=== PATIENT | female | born 1945 | race Caucasian/White ===

== ENCOUNTER 2019-08-29 12:12 | Outpatient (CLI) | payer MEDICARE, SELFPAY ==
--- NOTE | ~2019-08-29 | MM_ITS ---
EXAMINATION: MM screening [facility] BI w snow HISTORY: Screening mammogram TECHNIQUE: Craniocaudal and mediolateral oblique 3-D tomosynthesis images were obtained and synthetic 2-D images were generated. CAD analysis was submitted and interpreted. COMPARISON: Comparison to multiple prior studies sequentially, with oldest reviewed study dated 05/07. BREAST PARENCHYMAL COMPOSITION: There are scattered areas of fibroglandular density. FINDINGS: There is no evidence of suspicious mass, calcification, or architectural distortion to sugg est malignancy in either breast. There has been no suspicious interval change. IMPRESSION: 1. No mammographic evidence of malignancy. 2. Recommend routine screening mammography in one year. BI-RADS Category 1: Negative Reviewed, dictated and finalized at location A. LE SCHOOL ASSISTANT PRINCIPAL
== END 2019-08-29 12:13 | disposition home or self-care (01) ==
LOC: CHSIMG 12:15
PROVIDERS: PCP Internal Medicine; Visit Provider Obstetrics & Gynecology
DX: Z12.31 Encounter for screening mammogram for malignant neoplasm of breast (principal)
CPT/HCPCS: 77063; 77067

== ENCOUNTER 2020-01-06 07:10 | Outpatient (CLI) | payer MEDICARE, SELFPAY ==
--- NOTE | ~2020-01-06 | XR_ITS ---
EXAMINATION: XR hand RT min 3V, XR wrist RT min 3V DATE: 01/06/2020 07:45 INDICATION: Right hand and wrist pain and swelling TECHNIQUE: 1. Posteroanterior, ulnar deviation, oblique, and lateral views of the right wrist were obtained. 2. Dorsal palmar, oblique and lateral views of the right hand were obtained. COMPARISON: None. FINDINGS: Alignment of the hand and wrist is normal. No fracture identified. Polyarticular osteoarthritis, sev ere at the first carpal metacarpal and at the second-fifth distal interphalangeal joints. There are c entral erosions with gullwing configuration at the base of the second, third and fifth distal phalang es consistent with erosive osteoarthritis. Moderate osteoarthritis at the first interphalangeal joint and mild osteoarthritis at the wrist, triscaphe and remaining interphalangeal and metacarpophalangea l joints. Diffuse osteopenia. Soft tissues are unremarkable. IMPRESSION: 1. Polyarticular osteoarthritis, severe at the first carpometacarpal and multiple distal interphalang eal joints. Reviewed, dictated and finalized at location A. IMPRESSION: 1. Polyarticular osteoarthritis, severe at the first carpometacarpal and multip le distal interphalangeal joints.
[2020-01-06 07:27] LABS: Basophils Absolute Auto 0.04 K/mm3 (0.00-0.10); Basophils Percent Auto 0.9 % (0.0-1.0); Eosinophils Absolute Auto 0.36 K/mm3 (0.02-0.50); Eosinophils Percent Auto 8.4 % (1.0-6.0); Hematocrit 40.9 % (35.0-42.0); Hemoglobin 13.5 g/dL (11.7-13.8); Immature Granulocyte Absolute 0.01 K/mm3 (0.00-0.00); Immature Granulocyte Percent A 0.2 % (0.0-0.0); Lymphocytes Absolute Auto 1.67 K/mm3 (1.10-4.50); Mean Corpuscular Hemoglobin 32.1 pg (27.0-31.0); Mean Corpuscular Volume 97.1 fL (78.0-102.0); Mean Platelet Volume 9.1 fl (9.2-11.8); Monocytes Absolute Auto 0.43 K/mm3 (0.10-0.90); Neutrophils Absolute Auto 1.8 K/mm3 (1.7-7.2); Neutrophils Percent Auto 41.5 % (50.0-70.0); Platelet Count Result 198 K/mm3 (150-420); Red Blood Count 4.21 M/mm3 (4.20-5.40); Red Cell Distribution Width 13.1 % (11.6-14.4); White Blood Count 4.3 K/mm3 (4.8-10.8)
[2020-01-06 07:38] LABS: Hemoglobin A1C 5.7 % (<5.7)
[2020-01-06 08:34] LABS: Alanine Aminotransferase 22 U/L (14-59); Albumin Level 3.5 g/dL (3.4-5.0); Alkaline Phosphatase 92 U/L (46-116); Anion Gap 11.1 mmol/L (7-16); Aspartate Amino Transferase 20 U/L (15-37); Bilirubin,Total 1.1 mg/dL (0.00-1.00); Blood Urea Nitrogen 17 mg/dL (7-18); Carbon Dioxide 30 mmol/L (21-32); Chloride 108 mmol/L (98-108); Estimated Glomerular Filt Rate > 60; Glucose 93 mg/dL (70-99); Osmolality Calculated 301 mOsm/kg (285-295); Potassium 4.1 mmol/L (3.5-5.1); Sodium 145 mmol/L (136-145); Total Protein 6.3 g/dL (6.4-8.2); Uric Acid 2.7 mg/dL (2.6-6.0)
[2020-01-06 08:36] LABS: CRP < 0.2 mg/dL (0.0-0.9)
[2020-01-11 11:19] LABS: Anti Cyclic Citrullinated Pept <16 Units (<20)
== END 2020-01-06 07:11 | disposition home or self-care (01) ==
LOC: CHSLAB 07:15
PROVIDERS: PCP Internal Medicine; Visit Provider Internal Medicine
DX: M79.641 Pain in right hand (principal); I10 Essential (primary) hypertension; R73.03 Prediabetes
CPT/HCPCS: 36415; 73110; 73130; 80053; 83036; 84550; 85025; 86140; 86200

== ENCOUNTER 2020-06-30 09:12 | Outpatient (CLI) | payer MEDICARE, SELFPAY ==
[2020-06-30 10:23] LABS: SARS-CoV-2 Ag Negative (Negative)
== END 2020-06-30 09:13 | disposition home or self-care (01) ==
LOC: CHSLAB 09:16
PROVIDERS: PCP Internal Medicine; Visit Provider Internal Medicine
DX: Z20.828 Contact with and (suspected) exposure to other viral communicable diseases (principal)
CPT/HCPCS: 87426

== ENCOUNTER 2020-11-27 15:37 | Outpatient (RCR) | payer MEDICARE, SELFPAY ==
--- NOTE | 2020-11-27 17:00 | PTOPEVAL ---
Thank you for referring Tasha Wylie to [facility].? The patient is scheduled to be seen for therapy? __2__x/week for 10 visits Please review, sign, date and return this plan of care NORMA. I agree with and certify that the following plan of care is medically necessary. Referring Physician Date Admitting Provider: Attending Provider: Anil Levy MD Referring Provider: *PT Outpatient Evaluation Start: 11/27/20 15:56 Freq: Status: Active Protocol: Document 11/27/20 15:56 ACR (Rec: 11/27/20 16:59 ACR [id number]) Therapy Assessment Status Assessment Status Assessment Status Evaluation Evaluation Information Problem Diagnosis bilateral knee pain Onset 11/22/20 Subjective Information Patinet states that she has Query Text:As Reported By Patient/ knee, back, and hip pain. She Family went to the doctor in October and the pain was bad, but it has decreased overtime. Patient states she got a shot in her R hip and then followed up after a month. She then started to have a lot of knee pain during this time, which she got an x-ray of her knees along with shots in both knees . Patient states that her L knee hurts worse than her R. The MD sent an order over for strengthening of the knees and to improve gait. Patient states that she has the most difficulty with stairs, walking/standing for a prolonged time, and occasionally getting up from the chair. Patient states she has stairs onto her back porch where she has to hold onto something. She states she has more difficulty going up the steps then going down. She is also afraid of falling. Patient states that she is unable to perform her hobbies (golfing, bowling, and gardening) because of all of her aches and pains. Prior Level of Function Activity Level (Last 3 Months) Occupation retired Hand Dominance Right Activi
== END 2020-12-27 10:55 | disposition home or self-care (01) ==
LOC: CHSPT 15:37
PROVIDERS: PCP Internal Medicine; Visit Provider Orthopaedic Surgery
DX: M25.561 Pain in right knee (principal); M25.562 Pain in left knee
CPT/HCPCS: 97110; 97161; 97530

== ENCOUNTER 2021-04-22 11:37 | Outpatient (CLI) | payer MEDICARE, SELFPAY ==
[2021-04-22 14:22] LABS: SARS-CoV-2 RNA PCR Negative (Negative)
== END 2021-04-22 11:38 | disposition home or self-care (01) ==
LOC: CHSLAB 11:39
PROVIDERS: PCP Internal Medicine; Visit Provider Internal Medicine
DX: Z20.822 Contact with and (suspected) exposure to COVID-19 (principal)
CPT/HCPCS: C9803; U0003; U0005

== ENCOUNTER 2021-06-03 14:08 | Outpatient (CLI) | payer MEDICARE, SELFPAY ==
--- NOTE | ~2021-06-03 | MM_ITS ---
EXAMINATION: MM screening [facility] BI w snow HISTORY: Screening mammogram TECHNIQUE: Craniocaudal and mediolateral oblique 3-D tomosynthesis images were obtained and synthetic 2-D images were generated. CAD analysis was submitted and interpreted. COMPARISON: 08/29/2019, 08/26/2018, 07/07/2017 bilateral screening mammogram examinations BREAST PARENCHYMAL COMPOSITION: The breasts are almost entirely fatty. FINDINGS: There is no evidence of suspicious mass, calcification, or architectural distortion to sugg est malignancy in either breast. There has been no suspicious interval change. IMPRESSION: 1. No mammographic evidence of malignancy. 2. Recommend routine screening mammography in one year. BI-RADS Category 1: Negative Reviewed, dictated and finalized at location A. LEMENT PROCESSOR
== END 2021-06-03 14:09 | disposition home or self-care (01) ==
LOC: CHSIMG 14:10
PROVIDERS: PCP Internal Medicine; Visit Provider Obstetrics & Gynecology
DX: Z12.31 Encounter for screening mammogram for malignant neoplasm of breast (principal)
CPT/HCPCS: 77063; 77067

== ENCOUNTER 2021-12-18 10:05 | Outpatient (CLI) | payer MEDICARE, SELFPAY ==
--- NOTE | ~2021-12-18 | XR_ITS ---
EXAMINATION: XR knee LT min 4V DATE: 12/18/2021 10:26 INDICATION: Left knee pain and swelling. TECHNIQUE: 5 views of left knee were obtained. COMPARISON: Left knee radiographs 02/07/2016 FINDINGS: Bone alignment is normal. No fracture. There is mild tricompartmental osteoarthritis. No kn ee joint effusion. IMPRESSION: 1. Mild left knee osteoarthritis. Reviewed, dictated and finalized at location B.
== END 2021-12-18 10:06 | disposition home or self-care (01) ==
PROVIDERS: PCP Internal Medicine; Visit Provider Orthopaedic Surgery
DX: M17.12 Unilateral primary osteoarthritis, left knee (principal)
CPT/HCPCS: 73564

== ENCOUNTER 2022-03-12 15:11 | Outpatient (CLI) | payer MEDICARE, SELFPAY ==
[2022-03-12 15:46] LABS: Add Urine Microscopic? NO; Appearance Urine Clear (Clear); Bilirubin Urine Negative (Negative); Blood Urine Negative (Negative); Color Urine Light Yellow (Yellow); Glucose Urine UA Negative (Negative); Ketones Urine Negative (Negative); Leukocyte Esterase Ur Negative LEU/UL (Negative); Nitrate Urine Negative (Negative); Protein Urine Negative (Negative); Specific Grav Ur 1.015 (1.010-1.020); Urobilinogen Urine 0.2 mg/dL (0.2-1.0); pH Urine 7.5 (5.0-8.0)
[2022-03-15 14:07] LABS: Hepatitis C Signal to Cutoff 0.01 ratio (<1.00); Hepatitis C Virus Antibody Nonreactive (Nonreactive)
== END 2022-03-12 15:12 | disposition home or self-care (01) ==
LOC: CHSLAB 15:13
PROVIDERS: PCP Internal Medicine; Visit Provider Internal Medicine
DX: N39.0 Urinary tract infection, site not specified (principal); Z13.89 Encounter for screening for other disorder
CPT/HCPCS: 36415; 81003

== ENCOUNTER 2022-06-06 11:50 | Outpatient (CLI) | payer MEDICARE, SELFPAY ==
--- NOTE | ~2022-06-06 | XR_ITS ---
XR hip LT min 2V DATE: 06/06/2022 12:19 INDICATION: Chronic left hip pain for years. TECHNIQUE: AP and lateral views COMPARISON: 10/24/2020 pelvis and bilateral hips FINDINGS: Severe degenerative disc disease at L4-5 and L5-S1. Normal alignment at the pubic symphysis and left sacroiliac joint. There is mild degenerative spurring of the left femoral head consistent with mild left hip osteoarthr itis. No fracture or dislocation, avascular necrosis or bone destruction of the left hip is detected. IMPRESSION: Severe degenerative disc disease at L4-5 and L5-S1 Mild left hip osteoarthritis Reviewed, dictated and finalized at location B. MENT MANAGEMENT CONSULTANT
== END 2022-06-06 11:51 | disposition home or self-care (01) ==
LOC: CHSLAB 11:52
PROVIDERS: PCP Internal Medicine; Visit Provider Nurse Practitioner Family
DX: M25.552 Pain in left hip (principal)
CPT/HCPCS: 73502

== ENCOUNTER 2022-06-11 09:05 | Outpatient (CLI) | payer MEDICARE, SELFPAY ==
--- NOTE | ~2022-06-11 | MM_ITS ---
EXAMINATION: MM screening [facility] BI w snow HISTORY: Screening mammogram TECHNIQUE: Craniocaudal and mediolateral oblique 3-D tomosynthesis images were obtained and synthetic 2-D images were generated. CAD analysis was submitted and interpreted. COMPARISON: 06/03/2021, 08/29/2019, 08/26/2018 BREAST PARENCHYMAL COMPOSITION: There are scattered areas of fibroglandular density. FINDINGS: No suspicious mass, calcification, or architectural distortion are identified in either chandu ast to suggest malignancy. There has been no suspicious interval change. IMPRESSION: 1. No mammographic evidence of malignancy. 2. Recommend routine screening mammography in one year. BI-RADS Category 1: Negative Reviewed, dictated and finalized at location A. ETARY RECEPTIONIST
== END 2022-06-11 09:06 | disposition home or self-care (01) ==
LOC: CHSIMG 09:07
PROVIDERS: PCP Internal Medicine; Visit Provider Obstetrics & Gynecology
DX: Z12.31 Encounter for screening mammogram for malignant neoplasm of breast (principal)
CPT/HCPCS: 77063; 77067

== ENCOUNTER 2022-07-15 11:45 | Outpatient (CLI) | payer MEDICARE, SELFPAY ==
--- NOTE | ~2022-07-15 | XR_ITS ---
EXAMINATION: XR knee LT 2V DATE: 07/15/2022 12:09 INDICATION: Left knee pain TECHNIQUE: Two views of the left knee were obtained. COMPARISON: 12/18/2021 FINDINGS: Alignment is normal. No fracture or osteochondral lesion. There is mild tricompartmental os teoarthritis characterized by tiny marginal osteophytes. No joint effusion/synovitis. Soft tissues a re unremarkable. IMPRESSION: 1. Mild osteoarthritis without acute osseous abnormality. Reviewed, dictated and finalized at location L. THESIA RESIDENT
== END 2022-07-15 11:46 | disposition home or self-care (01) ==
LOC: CHSIMG 11:49
PROVIDERS: PCP Internal Medicine; Visit Provider Nurse Practitioner Family
DX: M25.562 Pain in left knee (principal); M17.12 Unilateral primary osteoarthritis, left knee
CPT/HCPCS: 73560

== ENCOUNTER 2022-09-13 14:36 | Emergency (ER) | payer MEDICARE, SELFPAY ==
[2022-09-13 14:36] VITALS: BP 122/70; PULSE 71; RESP 18; TEMP 36; O2SAT 98
--- NOTE | 2022-09-13 14:44 | ED.FEVER ---
HPI - Fever General Chief Complaint: Unspecified Stated Complaint: covid positive; body aches Time Seen by Provider: 09/13/22 14:44 Source: patient Mode of arrival: ambulatory Limitations: no limitations History of Present Illness HPI Narrative: patient having chills and weakness with currently no shortness of breath patient is currently afebrile is not short of breath does have some nasal congestion and nonproductive cough and tested positive for COVID. MD elicited complaint: weakness Related Data Home Medications Medication Instructions Recorded Confirmed atorvastatin 40 mg tablet 40 mg PO DAILY 07/14/19 03/13/21 calcium carbonate 600 mg-vitamin cap PO 07/14/19 03/13/21 D3 5 mcg (200 unit) capsule (Calcium 600 + D(3)) diltiazem HCl 180 mg 180 mg PO DAILY 07/14/19 03/13/21 capsule,extended release 24 hr albuterol sulfate 90 mcg/actuation 1 puff inhalation Q4H PRN 02/01/20 03/13/21 aerosol inhaler (Ventolin HFA) ramipril 10 mg capsule 10 mg PO DAILY 02/01/20 03/13/21 Allergies Allergy/AdvReac Type Severity Reaction Status Date / Time No Known Allergies Allergy Verified 02/06/22 14:02 Review of Systems Review of Systems: All systems reviewed & are unremarkable except as noted in HPI and below PMFSH Past Medical History Medical History Asthma Elevated lipids H/O vaginal delivery Hypertension Vulvar inflammation Surgical History Surgical History History of dilation and curettage History of elbow surgery History of myomectomy History of tubal ligation Family History Family History Father Family history of chronic obstructive pulmonary disease Mother Family history of diabetes mellitus in first degree relative Family history of heart disease in male family member before age 55 Diabetes mellitus Other Family history of malignant neoplasm Family history of malignant neoplasm of breast Social History Social History Smoking status: Never smoker Smoking end date: 07/06/75 Alcohol intake: never Exam Const: General: healthy appearing Nutritional Appearance: well nourished Orientation/consciousness: patient oriented x3 Limitations: no limitations HENMT: Head: normal to inspection Face/Nose/Sinus: Normal external nose present Face and sinus: normal facial exam Mouth: Yes Normal oral and palatal mucosa present Eyes: Conjunctivae: conjunctivae normal EOM: EOMs intact bilaterally Neck: Neck: normal visual inspection Chest: Chest palpation & inspection: normal inspection of the chest Resp: Effort & Inspection: normal respiratory effort Cardio: Rate: regular rate Rhythm: regular rhythm GI: GI Palp: Yes Soft to palpation : General: Yes bladder normal to palpation Skin: General skin exam: normal color Rashes: no rashes Neuro: General: patient oriented x3 and moves all extremities Psych: Appearance: grossly normal Mental Status: mental status grossly normal Course REGULATORY TECHNICIAN/PA Physician Supervision Patient here requesting Paxlovid be sent to her pharmacy, otherwise there is no shortness of breath currently afebrile and tested positive for COVID at home. Critical Care Time Critical Care Time Critical Care Time: No Discharge Plan Discharge Clinical Impression: COVID-19 Patient Disposition: Home, Self-Care Condition: Stable Instructions: Antibiotic Form, COVID-19 (Coronavirus Disease 2019) (ED) Additional Instructions: advised take medicine as prescribed, Tylenol or Motrin self isolation and follow up primary symptoms persist or worsen. Advised patient to hold atorvastatin until finished with a course of paxlovid. Prescriptions: New Paxlovid (EUA) 300 mg (150 mg x 2)-100 mg tablets,dose pack See Rx Instructions .ROUTE .COM
== END 2022-09-13 15:01 | disposition home or self-care (01) ==
LOC: CHSED 14:53
PROVIDERS: Emergency Provider Emergency Medicine; PCP Internal Medicine
DX: U07.1 COVID-19 (principal); J45.909 Unspecified asthma, uncomplicated
CPT/HCPCS: 99283

== ENCOUNTER 2022-11-04 09:02 | Outpatient (CLI) | payer MEDICARE, SELFPAY ==
--- NOTE | ~2022-11-04 | US_ITS ---
Pelvic ultrasound. Clinical History: Postmenopausal bleeding Technique: Realtime transabdominal and transvaginal scanning of the pelvis was performed. Color flow Doppler and Doppler spectral analysis were performed. Findings: The uterus is anteverted. The endometrial stripe has a thickness of 7 mm. No focal mass is identified. Neither ovary seen. No adnexal mass seen.. There is no evidence of free fluid in the cul de sac. Impression: Mild thickening of the endometrial stripe. Consider endometrial hyperplasia versus possibility of end ometrial neoplasm. Consider additional workup including endometrial biopsy as indicated. Reviewed, dictated and finalized at location M. Impression: Mild thickening of the endometrial stripe. Consider endometrial hyperplasia linda stephen possibility of endometrial neoplasm. Consider additional workup including e ndometrial biopsy as indicated.
== END 2022-11-04 09:03 | disposition home or self-care (01) ==
PROVIDERS: PCP Internal Medicine; Visit Provider Registered Nurse
DX: N95.0 Postmenopausal bleeding (principal)
CPT/HCPCS: 76830; 76856

== ENCOUNTER 2023-06-26 10:47 | Outpatient (CLI) | payer MEDICARE, SELFPAY ==
--- NOTE | ~2023-06-26 | MM_ITS ---
EXAMINATION: MM screening [facility] BI w snow HISTORY: Screening TECHNIQUE: Craniocaudal and mediolateral oblique 3-D tomosynthesis images were obtained and synthetic 2-D images were generated. CAD analysis was submitted and interpreted. COMPARISON: Comparison to multiple prior studies sequentially, with oldest reviewed study dated 06/06. BREAST PARENCHYMAL COMPOSITION: Breast composed of scattered areas of fibroglandular density FINDINGS: There is no evidence of suspicious mass, calcification, or architectural distortion to sugg est malignancy in either breast. There has been no suspicious interval change. IMPRESSION: 1. No mammographic evidence of malignancy. 2. Recommend routine screening mammography in one year. BI-RADS Category 1: Negative Reviewed, dictated and finalized at location A. OFFBEARER
== END 2023-06-26 10:48 | disposition home or self-care (01) ==
LOC: CHSIMG 10:50
PROVIDERS: PCP Internal Medicine; Visit Provider Obstetrics & Gynecology
DX: Z12.31 Encounter for screening mammogram for malignant neoplasm of breast (principal)
CPT/HCPCS: 77063; 77067

== ENCOUNTER 2023-07-02 11:32 | Outpatient (CLI) | payer MEDICARE, SELFPAY ==
--- NOTE | ~2023-07-02 | XR_ITS ---
XR knee LT min 4V 07/02/2023 11:49 Indication: Left knee pain Procedure: 4 views left knee Comparison: Comparison to multiple prior studies sequentially, with oldest reviewed study dated 10/2015. Findings: There is mild osteoarthritis of the left knee. No fracture, subluxation or dislocation. No significant joint effusion. No foreign bodies. Impression: 1: Mild osteoarthritis of the left knee. Reviewed, dictated and finalized at location L. CTOR BUILDING Impression: 1: Mild osteoarthritis of the left knee.
== END 2023-07-02 11:33 | disposition home or self-care (01) ==
PROVIDERS: PCP Internal Medicine; Visit Provider Orthopaedic Surgery
DX: M17.12 Unilateral primary osteoarthritis, left knee (principal)
CPT/HCPCS: 73564

== ENCOUNTER 2023-12-11 12:08 | Outpatient (CLI) | payer MEDICARE, SELFPAY ==
--- NOTE | ~2023-12-11 | US_ITS ---
US pelvic complete Ordering provider: Alejandra Rader History: . pelvic pain in female . Comparison: November 04, 2022 Technique: Transabdominal ultrasound of the pelvis (Doppler ultrasound interrogation techniques used as needed for this exam.) FINDINGS: CERVIX: Normal. UTERUS: Measures 7.4x 5.7x 3.4 cm in length which is within normal limits and is anteverted. No myom etrial masses. ENDOMETRIUM: Normal in thickness measuring 6 mm. (Note: the premenopausal endometrium may measure up to 16 mm when in the secretory phase.) No endometrial masses, cysts or fluid. CUL DE SAC: No free fluid. RIGHT OVARY: Not seen. LEFT OVARY: Not seen. ADNEXA: Normal. No mass. IMPRESSION: Unremarkable pelvic ultrasound. Ovaries are not demonstrated. Reviewed, dictated and finalized at location A.
== END 2023-12-11 12:09 | disposition home or self-care (01) ==
LOC: CHSIMG 12:10
PROVIDERS: PCP Internal Medicine
DX: R10.2 Pelvic and perineal pain (principal)
CPT/HCPCS: 76856

== ENCOUNTER 2025-01-25 09:34 | Outpatient (CLI) | payer MEDICARE, SELFPAY ==
--- NOTE | ~2025-01-25 | MM_ITS ---
EXAMINATION: MM screening armando BI w snow HISTORY: Screening TECHNIQUE: Craniocaudal and mediolateral oblique 3-D tomosynthesis images were obtained and synthetic 2-D images were generated. CAD analysis was submitted and interpreted. COMPARISON: Comparison to multiple prior studies sequentially, with oldest reviewed study dated 2017. BREAST PARENCHYMAL COMPOSITION: The breasts are almost entirely fatty. FINDINGS: There is no evidence of suspicious mass, calcification, or architectural distortion to sug gest malignancy in either breast. IMPRESSION: 1. No mammographic evidence of malignancy. 2. Recommend routine screening mammography in one year. BI-RADS Category 1: Negative Reviewed, dictated and finalized at location B.
--- OUTSIDE RECORDS SUMMARY | 2025-01-25 09:45 | XMS_ITS | Patient Health Record ---
Author Organization [facility] Address [address] [place], [place] [id number] Care Team Providers Care Manufacturing Industrial Engineer Name Role Phone TIRSO AUSTIN Unavailable [phone] Scott Escobar Unavailable Unavailable Reason For Referral No Information Plan Of Treatment No Information Insurance Providers Payer Name Payer Address Payer Phone Subscriber Number Group Number Insured Name Patient Relationship to Insured Coverage Start Date Coverage End Date Medicare Part B [place] [address] [facility] [address] [id number] EVELIO MERINO Self - patient is the insured [facility] [address] [address] [place] [address] [id number] EVELIO MERINO Self - patient is the insured [facility] [address] [place] [phone] [id number] EVELIO MERINO Self - patient is the insured
--- OUTSIDE RECORDS SUMMARY | 2025-01-25 09:45 | XMS_ITS | Clinical Summary ---
Author Organization [facility] Address [address] [place] [address] Care Team Providers Care Photographic Lithographer Name Role Phone Scott Escobar MD Primary Care Provider [phone] Source Comments [facility],non-owned Affiliates and Associated Physician Practices is amultiple site organization consisting of ambulatory clinics and hospital sitesin [place], [place], [place] and [place]. This disclosure is being madepursuant to the Care Everywhere program and may not contain all information available regarding this patient. Last updated 18.[facility] Allergies No known active allergies Medications * Be aware that medications may not be up to date on this document. Alwaysverify current medications with the patient. ramipril (Altace) 10 MG capsule Take 1 (one) capsule by mouth once daily 3 Active atorvastatin (Lipitor) 40 MG tablet Take 1 (one) tablet by mouth once daily 3 Active aspirin EC (Ecotrin) 81 MG tablet Take 1 (one) tablet by mouth once daily Active fexofenadine (Jannie Allergy) 180 MG tablet Take 1 (one) tablet by mouth once daily Active Calcium Carb-Cholecalc iferol (Calcium + Vitamin D3) 500-10 MG-MCG Take 1 tablet by mouth once daily Active dilTIAZem coated beads 24hr (Cardizem CD) 180 MG capsule Take 1 (one) capsule by mouth once daily 4 Active fluticasone propionate (Flonase) 50 MCG/ACT nasal spray [place] 2 (two) sprays into each nostril once daily as needed Active ibuprofen (Advil) 200 MG capsule Take 1 (one) capsule by mouth 4 times daily as needed for Pain Active naproxen sodium (Aleve) 220 MG tablet Take 1 (one) tablet by mouth 2 times daily as needed for Pain Active acetaminophen (Tylenol) 500 MG tablet Take 1 (one) tablet by mouth every 4 hours as needed for Fever or Pain Maximum allowable Acetaminophen amount = 4 Grams (4000 mg) / 24 hours. Active Albuterol-[place] sonide (Airsupra) 90-80 MCG/ACT AERO Inhale Active methocarbamol (Robaxin) 500 MG tablet TAKE 2 TABLETS BY MOUTH 2 TIMES A DAY NEEDED FOR 30 DAYS 4 Active estradiol (Estrace) 0.1 MG/GM vaginal cream INSERT 1G INTO THE VAGINA NIGHTLY FOR 1 WEEK. THEN INSERT 1G INTO THE VAGINA TWO TIMES A WEEK THEREAFTER. 42.5 g 3 5 Active DULoxetine (Cymbalta) 60 MG capsule TAKE 1 CAPSULE (60 MG) BY ORAL ROUTE EVERY EVENING 5 Active Magnesium Cl-Calcium Carbonate (SLOW-MAG PO) Active triamcinolone acetonide (Kenalog) 0.1 % ointmentIndica tions:Lichen sclerosus et atrophicus of the vulva Apply to external vulvar tissues twice daily. 30 g 80 g 3 5 Active Active Problems Problem Noted Date Diagnosed Date Mixed hyperlipidemia 06/14/2021 12/03/2022 Benign hypertension 08/20/2015 12/03/2022 Overview (12/03/2022): HTN (hypertension), benign Coronary artery disease invo lving [place] coronary artery of [place] heart without angina pectoris 08/20/2015 12/03/2022 Overview (12/03/2022): Coronary artery disease involving [place] coronary artery of [place] heart without angina pectoris SVITLANA on CPAP 08/20/2015 12/03/2022 Overview (12/03/2022): SVITLANA on CPAP Paroxysmal supraventricular tachycardia 01/19/20 14 12/03/2022 Overview (12/03/2022): PSVT (paroxysmal supraventricular tachycardia) Morbid (severe) obesity due to excess calories 1 07/11/2011 Lichen sclerosus et atrophicus of the vulva 11/0 12/201112/03/2022 Encounters Date Type Department Care Team Description 12/13/2024 2:20 PM CDT Office Visit [facility] - DRAPERY AND UPHOLSTERY ESTIMATOR [address] [place] [address] Georgia Morris MD Lichen sclerosus et atrophicus of the vulva (Primary Dx) 12/13/2024 Travel from Last 3 Months Family History Medical History Relation Name Comments Cancer - Breast Maternal Aunt CAD (Coronary Artery Disease) Mother Diabetes - Type 2 Mother Cancer - Ovarian Sister Diabetes - Type 2 Son 1 Diabetes - Type 2 Son 2 Relation Name Status Comments Maternal Aunt Mother Sister Son 1 Alive Son 2 Alive Social History Tobacco Use Types Packs/Day Years Used Date Smoking Tobacco: Former Cigarettes Q uit: 1976 Passive Smoke Exposure: Past Smokeless Tobacco: Never Tobacco Cessation:Counseling Given: Not Answered Alcohol Use Standard Drinks/Week Comments Not Currently 0 (1 standard drink = 0.6 oz pur e alcohol) PHQ-2 Answer Date Recorded Patient Health Questionnaire-2 Score 0 12/13/2024 Comments No Sex and Gender Information Value Date Recorded Sex Assigned at Not on file Legal Sex Female 5:55 PM LIBRARIAN SPECIALIST Gender Identity Not on file Sexual Orientation Not on file Last Filed Vital Signs Vital Sign Reading Time Taken Comments Blood Pressure 130/74 12/13/2024 1:42 PM CDT Pulse - - Temperature 36.1 C (96.9 F) 12/03/2022 10:57 AM CDT Respiratory Rate - - Oxygen Saturation - - Inhaled Oxygen Concentration - - Weight 116.6 kg (257 lb 1.6 oz) 12/13/2024 1:42 PM CDT Height 168.9 cm (5' 6.5) 12/13/2024 1 :42 PM CDT Body Mass Index 40.88 12/13/2024 1:42 PM CDT Plan of Treatment Upcoming Encounters Date Type Department Care Team (Late st Contact Info) Description 02/09/2025 11:45 AM CDT Office Visit [facility] - DRAPERY AND UPHOLSTERY ESTIMATOR [address] [place] [address] Lala Rosenthal MD [address] [place] [address] 05/16/2025 10:30 AM LIBRARIAN SPECIALIST Office Visit [facility] - DRAPERY AND UPHOLSTERY ESTIMATOR [address] [place] [address] Georgia Morris MD [address] [place] [address] Health Maintenance Due Date Last Done Comments BONE DENSITY TESTING 1945 MEDICARE AWV 12 MONTHS 1945 HEPATITIS C SCREENING 05/27/1965 DTAP/TDAP/TD VACCINES (1 - Tdap) 1966 PNEUMOCOCCAL VACCINE 50+ (1 of 1 - PCV) 1997 ZOSTER VACCINE (1 of 2) 1997 Respiratory Syncytial Virus (RSV) Vaccine Pt: or over 60 yrs (1 - 1-dose 75+ series) 2022 COVID-19 VACCINE ( season) 2024 04/17/2022, 04/09/2021, 08/29/2020, Additional history exists INFLUENZA VACCINE (#1) 2025 , 05/23/2022, 06/03/2021, Additional history exists DEPRESSION SCREENING Completed 12/13/2024, 02/04/20 HEPATITIS B VACCINE Aged Out No longe r eligible based on patient's age to complete this topic HIB VACCINE Aged Out No longer eligi ble based on patient's age to complete this topic HPV VACCINE Aged Out No longer eligi ble based on patient's age to complete this topic MENINGOCOCCAL (Group B) VACCINE SHARED DECISION-MAKING Aged Out No longer eligible based on patient's age to complete this topic MENINGOCOCCAL GROUPS A/C/Y/W VACCINE Aged Out No longer eligible based on patient's age to complete this [place] [address] MEDICARE MEDICARE [place] [address] Care Teams Photographic Lithographer Relationship Specialty Start Date End Date Scott Escobar MD [address] [phone] PCP - General 04/20/12
--- OUTSIDE RECORDS SUMMARY | 2025-01-25 09:45 | XMS_ITS | Clinical Summary ---
Author Organization [facility] [address] Address [address] [place] [address] Care Team Providers Care Home Visitor Home Base Head Start Name Role Phone Scott Escobar MD Primary Care Provider [phone] Allergies No known active allergies Medications calcium carbonate (CALCIUM 500) 1,250 MG (500 mg of elemental calcium) tablet take 1 by Oral route every day 0 12/08/2012 Active aspirin (ADULT LOW DOSE ASPIRIN) 81 mg tablet Take 1 tablet (81 mg total) by mouth daily. 05/13/2017 Active fexofenadine (YOAN) 180 mg tablet Take 1 tablet (180 mg total) by mouth daily Active albuterol-budes onide (Airsupra) 90-80 mcg/actuation HFA aerosol inhaler Inhale Active atorvastatin (LIPITOR) 40 mg tablet Take 1 tablet (40 mg total) by mouth daily 90 tablet 2 05/20/2024 Active dilTIAZem XR (DILT-XR) 180 mg 24 hr capsule TAKE 1 CAPSULE DAILY 90 capsule 2 05/20/2024 Active ramipriL (ALTACE) 10 mg capsule Take 1 capsule (10 mg total) by mouth daily 90 capsule 2 05/20/2024 Active acetaminophen (TYLENOL) 500 mg tablet Take 1 tablet (500 mg total) by mouth every 6 (six) hours as needed for pain Active Active Problems Problem Noted Date Diagnosed Date Morbid (severe) obesity due to excess calories 1 08/27/2021 Chronic fatigue 12/18/2021 Systolic murmur 12/18/2021 Mixed hyperlipidemia 06/14/2021 Myalgia 11/30/2018 Morbid obesity with BMI of 40.0-44.9, adult 110 02/2017 Morbid obesity 08/20/2015 Overview (10/10/2016): Morbid obesity with BMI of 45.0-49.9, adult SVITLANA on CPAP 08/20/2015 Overview (10/10/2016): SVITLANA on CPAP Benign hypertension 08/20/2015 Overview (10/10/2016): HTN (hypertension), benign Coronary artery disease invo lving kasaan coronary artery of kasaan heart without angina pectoris 08/20/2015 Overview (10/10/2016): Coronary artery disease involving kasaan coronary artery of kasaan heart without angina pectoris Paroxysmal supraventricular tachycardia 01/19/20 14 Overview (10/10/2016): PSVT (paroxysmal supraventricular tachycardia) Resolved Problems Problem Noted Date Diagnosed Date Resolved Date Dyslipidemia 08/20/2015 12/18/2021 Overview (10/10/2016): Dyslipidemia Surgical History Surgery Date Site/Laterality Comments CARDIAC CATHETERIZATION ELBOW SURGERY Medical History Medical History Date Comments Hx Other Medical Arrhythmias PSV T Hypertension Hypertension Hx Other Medical Sleep Apnea, CP AP Hx Other Medical Diabetes Type I I Hx Other Medical Obesity, Morbid Cardiovascular disease Coronary Artery Disease Asthma Family History Medical History Relation Name Comments COPD Father COPD; Diabetes Mother Diabetes mellit us; Relation Name Status Comments Father Mother Social History Tobacco Use Types Packs/Day Years Used Date Smoking Tobacco: Former Smokeless Tobacco: Never Alcohol Use Standard Drinks/Week Comments No 0 (1 standard drink = 0.6 oz pur e alcohol) Comments Unknown Sex and Gender Information Value Date Recorded Sex Assigned at Not on file Legal Sex Female 4:03 PM RNP Gender Identity Not on file Sexual Orientation Not on file Obstetrics History Last Filed Vital Signs Vital Sign Reading Time Taken Comments Blood Pressure 134/72 09/15/2024 7:49 AM CDT Pulse 64 09/15/2024 7:49 AM CDT Temperature - - Respiratory Rate - - Oxygen Saturation 97% 09/15/2024 7:49 AM CDT Inhaled Oxygen Concentration - - Weight 117.9 kg (260 lb) 09/15/2024 7:49 AM CDT Height 170.2 cm (5' 7) 09/15/2024 7:49 AM CDT Body Mass Index 40.72 09/15/2024 7:49 AM CDT Plan of Treatment Health Maintenance Due Date Last Done Comments Depression Screening 1945 Fall Risk Assessment 1945 Hepatitis C Screening 1945 Osteoporosis Screening-Bone Density Scan 1945 DTaP/Tdap/Td Vaccine (1 - Tdap) 1958 Hepatitis B Screening 1965 Well Visit 65+ 2012 Zoster Vaccine (2 of 2) 08/17/2019 06/22/2019 Influenza Vaccine (Season Ended) 2025 05/20/2019, 05/10/2018, 05/19/2017, Additional history exists Pneumococcal vaccine 65+ Completed 05/25/2017, 05/07 Insurance MEDICARE [employer]ET[employer] SENIOR SUPPLEMENT MEDICARE COMMERCIAL GENERIC AETNA SENIOR SUPPLEMENT Care Teams Home Visitor Home Base Head Start Relationship Specialty Start Date End Date Scott Escobar MD PCP - General 10/03/16
--- OUTSIDE RECORDS SUMMARY | 2025-01-25 09:45 | XMS_ITS | Clinical Summary ---
Author Organization [facility] Address [facility] [place] [address] Care Team Providers Care Technical Aid Name Role Phone None, Provider MD Primary Care Provider Unavaila ble Encounters Date Type Department Care Team Description 01/04/2025 10:29 AM CDT - 01/04/2025 11:59 PM CDT Hospital Encounter [facility] MRI [address] [place] [address] Jaky Perez NP Discharge Disposition: Home or Self Care (Routine Discharge) 01/04/2025 Travel from Last 3 Months Social History Tobacco Use Types Packs/Day Years Used Date Smoking Tobacco: Never Assessed Comments Unknown Sex and Gender Information Value Date Recorded Sex Assigned at Female 01/04/2025 10:28 AM CDT Legal Sex Female 10:44 PM CDT Gender Identity Not on file Sexual Orientation Not on file Plan of Treatment Health Maintenance Due Date Last Done Comments Hepatitis C 1965 DTaP, Tdap and Td Vaccines (1 - Tdap) 1966 Annual Medicare Wellness Visit 2012 Dexa Scan (General) 2012 Zoster Vaccines (2 of 2) 08/17/2019 06/22/2019 RSV Immunization or 60+ Years (1 - 1-dose 75+ series) 2022 COVID-19 Vaccine ( - season) 2024 05/14/2023, 04/17/2022, 04/09/2021, Additional history exists Pneumococcal Vaccine: 50+ Years Completed 05/25/2017, 06/03/2016 Meningococcal B Vaccine Aged Out No l onger eligible based on patient's age to complete this topic Meningococcal Vaccine Aged Out No ada shukri eligible based on patient's age to complete this topic RSV Immunizations Under 20 Months Aged Out No longer eligible based on patient's age to complete this topic Procedures Procedure Name Priority Date/Time Associated Diagnosis Comments MRI THOR SPINE WO CON Routine 01/04/2025 11:38 AM CDT Lumbar radicular pain from Last 3 Months Results * MRI THOR SPINE WO CON (01/04/2025 11:38 AM CDT) Anatomical Region Laterality Modality Spine Magnetic Resonan ce 01/11/2025 11:4 7 AM CDT Impressions 01/11/2025 11:51 AM CDT IMPRESSION: 1. Minimal effacement of ventral thecal sac at C4/C5 due to a small broad-based midline disc extrusion. No significant thoracic spinal canal stenosis or cord signal abnormality. 2. No acute osseous abnormality or ligamentous injury. Referred By: JAKY PEREZ Interpreted By: Dalton Reyes MD, 01/11/2025 11:47 AM Narrative 01/11/2025 11:51 AM CDT [address] [address] EXAMINATION:MRI of the thoracic spine without contrast 01/04/2025. INDICATION:Back pain TECHNIQUE: Multiplanar multisequence MR imaging of the thoracic spine was performed without intravenous contrast. COMPARISON: Lumbar spine MRI 06/24/2024 FINDINGS:The thoracic spine is in anatomic alignment. There is preservation of vertebral body heights and disc spaces. Bone marrow signal is within normal limits. No acute fracture or dislocation. Type I degenerative changes noted at L2/L3, unchanged. No ligamentous discontinuity or signal abnormality The thoracic spinal cord is unremarkable in course caliber contour and signal. No paraspinal mass or fluid collection. The thoracic aorta is unremarkable in contour. At the T4/T5 level there is a small broad-based midline disc extrusion causing slight effacement of ventral thecal sac. The thecal sac measures 10 mm. At the L1/L2 level there is a disc space narrowing with 2 mm retrolisthesis and disc bulging causing slight effacement of ventral thecal sac, unchanged. Procedure Note Dalton Reyes MD - 01/11/2025 [facility] [address] [place] [address] EXAMINATION:MRI of the thoracic spine without contrast 01/04/2025. INDICATION:Back pain TECHNIQUE: Multiplanar multisequence MR imaging of the thoracic spine wasperformed without intravenous contrast. COMPARISON: Lumbar spine MRI 06/24/2024 FINDINGS:The thoracic spine is in anatomic alignment. There ispreservation of vertebral body heights and disc spaces. Bone marrowsignal is within normal limits. No acute fracture or dislocation. Type Idegenerative changes noted at L2/L3, unchanged. No ligamentousdiscontinuity or signal abnormality The thoracic spinal cord is unremarkable in course caliber contour andsignal. No paraspinal mass or fluid collection. The thoracic aorta isunremarkable in contour. At the T4/T5 level there is a small broad-based midline disc extrusioncausing slight effacement of ventral thecal sac. The thecal sac [id number] mm. At the L1/L2 level there is a disc space narrowing with 2 mmretrolisthesis and disc bulging causing slight effacement of ventralthecal sac, unchanged. IMPRESSION: 1. Minimal effacement of ventral thecal sac at C4/C5 due to a smallbroad-based midline disc extrusion. No significant thoracic spinal canalstenosis or cord signal abnormality. 2. No acute osseous abnormality or ligamentous injury. Referred By: JAKY PEREZ Interpreted By: Dalton Reyes MD, 01/11/2025 11:47 AM Jaky Perez GAGE MAKER MRI Final Result from Last 3 Months Insurance MEDICARE AETNA Care Teams Technical Aid Relationship Specialty Start Date End Date None, Provider, PCP - General 02/13/22
--- OUTSIDE RECORDS SUMMARY | 2025-01-25 09:45 | XMS_ITS | Referral Summary ---
Author Organization [facility] [address] Address [address] [place] [address] Care Team Providers Care Tank Builder Helper Name Role Phone Scott Escobar MD Primary Care Provider [phone] Allergies No known active allergies Medications calcium [...] (hypertension), benign Coronary artery disease invo lving paimiut coronary artery of paimiut heart without angina pectoris 08/20/2015 Overview (10/10/2016): Coronary artery disease involving paimiut coronary artery of paimiut heart without angina pectoris Paroxysmal supraventricular tachycardia 01/19/20 14 Overview (10/10/2016): PSVT (paroxysmal supraventricular tachycardia) Resolved Problems Problem Noted Date Diagnosed Date Resolved Date Dyslipidemia 08/20/2015 12/18/2021 Overview (10/10/2016): Dyslipidemia Social History Tobacco Use Types Packs/Day Years Used Date Smoking Tobacco: Former Smokeless Tobacco: Never Alcohol Use Standard Drinks/Week Comments No 0 (1 standard drink = 0.6 oz pur e alcohol) Comments Unknown Sex and Gender Information Value Date Recorded Sex Assigned at Not on file Legal Sex Female 4:03 PM REGIONAL FACILITIES MANAGER Gender Identity Not on file Sexual Orientation [...] 09/15/2024 7:49 AM CDT Plan of Treatment Not on file Insurance MEDICARE AETNA SENIOR SUPPLEMENT MEDICARE COMMERCIAL GENERIC AETNA SENIOR SUPPLEMENT Care Teams Tank Builder Helper Relationship Specialty Start Date End Date Scott Escobar MD PCP - General 10/03/16
== END 2025-01-25 09:35 | disposition home or self-care (01) ==
PROVIDERS: PCP Internal Medicine; Visit Provider Obstetrics & Gynecology
DX: Z12.31 Encounter for screening mammogram for malignant neoplasm of breast (principal)
CPT/HCPCS: 77063; 77067

== ENCOUNTER 2025-03-30 13:47 | Outpatient (CLI) | payer MEDICARE, SELFPAY ==
[2025-03-30 15:14] LABS: Hematocrit 45.9 % (37.0-47.0); Hemoglobin 14.9 g/dL (12.0-15.0); Mean Corpuscular HGB Conc 32.5 g/dl (32-36); Mean Corpuscular Hemoglobin 31.7 pg (26-34); Mean Corpuscular Volume 97.7 fl (80-100); Platelet Count Result 256 k/mm3 (150-375); Red Blood Count 4.70 M/mm3 (4.2-5.4); White Blood Count 5.9 K/mm3 (4.5-10.0)
[2025-03-30 15:29] LABS: INR 1.0; Partial Thromboplastin Time 28.8 Seconds (22.3-36.8); Prothrombin Time 13.5 Seconds (11.1-14.7)
[2025-03-30 15:42] LABS: Add Urine Microscopic? YES; Appearance Urine Cloudy (Clear); Glucose Urine UA Negative (Negative); Leukocyte Esterase Ur Negative LEU/UL (Negative); Nitrate Urine Negative (Negative); Non Pathogenic Casts 0-2; Specific Grav Ur 1.026 (1.001-1.035)
--- OUTSIDE RECORDS SUMMARY | 2025-03-30 16:38 | XMS_ITS | Clinical Summary ---
Author Organization [facility] Address [facility] [place] [address] Care Team Providers Care Diet Counselor Name Role Phone None, Provider MD Primary Care Provider Unavaila ble Encounters Date Type Department Care Team Description 01/04/2025 10:29 AM CDT - 01/04/2025 11:59 PM CDT Hospital Encounter [facility] MRI [address] [place] [address] Jaky Perez NP Discharge Disposition: Home or [...] series) 2022 COVID-19 Vaccine ( - season) 2025 05/14/2023, 04/17/2022, 04/09/2021, Additional history exists Pneumococcal [...] 11:47 AM Narrative 01/11/2025 11:51 AM CDT [address] [address] EXAMINATION:MRI of the thoracic spine without contrast [...] Procedure Note Dalton Reyes MD - 01/11/2025 [facility] [address] [place] [address] EXAMINATION:MRI of the thoracic spine without contrast [...] of ventral thecal sac. The thecal sac [id number] mm. At the L1/L2 level there is [...] Reyes MD, 01/11/2025 11:47 AM Jaky Perez OB/GYN DOCTOR MRI Final Result from Last 3 Months Insurance MEDICARE AETNA Care Teams Diet Counselor Relationship Specialty Start Date End Date None, Provider, PCP - General 02/13/22
--- OUTSIDE RECORDS SUMMARY | 2025-03-30 16:38 | XMS_ITS | Clinical Summary ---
Author Organization [facility] Address [address] [place] [address] Care Team Providers Care Customer Account Specialist Name Role Phone Scott Escobar MD Primary Care Provider [phone] Source Comments [facility],non-owned Affiliates and Associated Physician Practices is amultiple site organization consisting of ambulatory clinics and hospital sitesin [place], [place], [place] and [place]. This disclosure is being madepursuant to the Care Everywhere program and may not contain all information available regarding this patient. Last updated 18.[facility] Allergies No known active allergies Medications * [...] fluticasone propionate (Flonase) 50 MCG/ACT nasal spray Doyle 2 (two) sprays into each nostril once daily as needed Active acetaminophen (Tylenol) 500 MG tablet Take 1 (one) tablet by mouth every 4 hours as needed for Fever or Pain Maximum allowable Acetaminophen amount = 4 Grams (4000 mg) / 24 hours. Active Albuterol-[place] sonide (Airsupra) 90-80 MCG/ACT AERO Inhale Active estradiol (Estrace) 0.1 MG/GM vaginal cream [...] 30 g 80 g 3 5 Active solifenacin (Vesicare) 10 MG tablet Take 1 (one) tablet by mouth once daily 30 tablet 5 5 Active Active Problems Problem Noted Date Diagnosed Date Mixed hyperlipidemia 06/14/2021 12/03/2022 Benign hypertension 08/20/2015 12/03/2022 Overview (12/03/2022): HTN (hypertension), benign Coronary artery disease invo lving nome coronary artery of nome heart without angina pectoris 08/20/2015 12/03/2022 Overview (12/03/2022): Coronary artery disease involving nome coronary artery of nome heart without angina pectoris SVITLANA on CPAP 08/20/2015 12/03/2022 Overview (12/03/2022): SVITLANA on CPAP Paroxysmal supraventricular tachycardia 01/19/20 14 12/03/2022 Overview (12/03/2022): PSVT (paroxysmal supraventricular tachycardia) Morbid (severe) obesity due to excess calories 1 07/11/2011 Lichen sclerosus et atrophicus of the vulva 12/201112/03/2022 Encounters Date Type Department Care Team Description 02/10/2025 Telephone [facility] - ENGINE MONITOR [address] [place] [phone] Lala Rosenthal MD Question 02/09/2025 11:45 AM CDT Office Visit [facility] - ENGINE MONITOR [address] [place] [phone] Lala Rosenthal MD Mixed stress and urge urinary incontinence (Primary Dx); Vaginal atrophy; OAB (overactive bladder); Cystocele, midline; Chronic bladder pain; Pelvic pain in female; Full incontinence of feces 02/09/2025 Travel from Last 3 Months Family History [...] Date Recorded Patient Health Questionnaire-2 Score 0 02/09/2025 Comments No Sex and Gender Information Value Date Recorded Sex Assigned at Not on file Legal Sex Female 5:55 PM FIELD SERVICE REPRESENTATIVE Gender Identity Not on file Sexual Orientation Not on file Last Filed Vital Signs Vital Sign Reading Time Taken Comments Blood Pressure 120/80 02/09/2025 11:36 AM CDT Pulse - - Temperature 36.1 C (96.9 F) 12/03/2022 10:57 AM CDT Respiratory Rate - - Oxygen Saturation - - Inhaled Oxygen Concentration - - Weight 116.8 kg (257 lb 9.6 oz) 025 11:36 AM CDT Height 168.9 cm (5' 6.5) 02/09/2025 11 :36 AM CDT Body Mass Index 40.95 02/09/2025 11:36 AM CDT Plan of Treatment Upcoming Encounters Date Type Department Care Team (Late st Contact Info) Description 05/16/2025 10:30 AM FIELD SERVICE REPRESENTATIVE Office Visit [facility] - ENGINE MONITOR [address] [place] [phone] Georgia Morris MD [address] [place] [address] 02/22/2026 11:45 AM CDT Office Visit [facility] - ENGINE MONITOR [address] [place] [address] Lala Rosenthal MD [address] [place] [address] Health Maintenance Due Date Last Done Comments BONE DENSITY TESTING 1945 MEDICARE AWV 12 MONTHS 1945 HEPATITIS C SCREENING 05/27/1965 DTAP/TDAP/TD VACCINES (1 - Tdap) 1966 PNEUMOCOCCAL VACCINE 50+ (1 of 1 - PCV) 1997 ZOSTER VACCINE (1 of 2) 1997 Respiratory Syncytial Virus (RSV) Vaccine Pt: or over 60 yrs (1 - 1-dose 75+ series) 2022 COVID-19 VACCINE ( - 2024- season) 2025 04/17/2022, 04/09/2021, 08/29/2020, Additional history exists INFLUENZA [...] age to complete this topic Insurance MEDICARE MEDICARE MEDICARE SUPPLEMENT PAYOR GENERIC Care Teams Customer Account Specialist Relationship Specialty Start Date End Date Scott Escobar MD [address] [id number] [facility] - General 04/20/12
--- OUTSIDE RECORDS SUMMARY | 2025-03-30 16:38 | XMS_ITS | Clinical Summary ---
Author Organization [facility] [address] [facility] [address] Address [address] [place] [address] Care Team Providers Care Rivet Spinner Name Role Phone Scott Escobar MD Primary Care Provider [phone] Allergies No known active allergies Medications calcium [...] 90-80 mcg/actuation HFA aerosol inhaler Inhale Active acetaminophen (TYLENOL) 500 mg tablet Take 1 tablet (500 mg total) by mouth every 6 (six) hours as needed for pain Active atorvastatin (LIPITOR) 40 mg tablet TAKE 1 TABLET DAILY 90 tablet 3 02/13/2025 Active dilTIAZem CD 180 mg 24 hr capsule TAKE 1 CAPSULE DAILY 90 capsule 3 02/13/2025 Active ramipriL (ALTACE) 10 mg capsule TAKE 1 CAPSULE DAILY 90 capsule 3 02/13/2025 Active omeprazole (PriLOSEC) 20 mg capsule Take 1 capsule (20 mg total) by mouth daily Active famotidine (PEPCID) 10 mg tablet Take 1 tablet (10 mg total) by mouth 2 (two) times a day Active DULoxetine DR (CYMBALTA) 60 mg capsule TAKE 1 CAPSULE (60 MG) BY ORAL ROUTE EVERY EVENING 10/08/2024 Active solifenacin (VESIcare) 10 mg tablet Take 1 tablet (10 mg total) by mouth daily 06/21/2024 Active Active Problems Problem Noted Date Diagnosed Date Morbid (severe) obesity due to excess calories 1 08/27/2021 Chronic fatigue 12/18/2021 Systolic murmur 12/18/2021 Mixed hyperlipidemia 06/14/2021 Myalgia 11/30/2018 Morbid obesity with BMI of 40.0-44.9, adult 02/2017 Morbid obesity 08/20/2015 Overview (10/10/2016): Morbid obesity with BMI of 45.0-49.9, adult SVITLANA on CPAP 08/20/2015 Overview (10/10/2016): SVITLANA on CPAP Benign hypertension 08/20/2015 Overview (10/10/2016): HTN (hypertension), benign 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 08/20/2015 Overview (10/10/2016): 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 Paroxysmal supraventricular tachycardia 01/19/20 14 Overview (10/10/2016): PSVT (paroxysmal supraventricular tachycardia) Resolved Problems Problem Noted Date Diagnosed Date Resolved Date Dyslipidemia 08/20/2015 12/18/2021 Overview (10/10/2016): Dyslipidemia Encounters Date Type Department Care Team Description 03/24/2025 11:30 AM CDT Office Visit [facility] Cardiology [address] [place] [address] Namrata Malagon NP Gastroesophageal reflux disease, unspecified whether esophagitis present; 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2 cm (5' 7) 03/24/2025 11:2 0 AM CDT Body Mass Index 41.36 03/24/2025 11:20 AM CDT Plan of Treatment Health Maintenance Due Date Last Done Comments Depression Screening 1945 Fall Risk Assessment 1945 Hepatitis C Screening 1945 Osteoporosis Screening-Bone Density Scan 1945 DTaP/Tdap/Td Vaccine (1 - Tdap) 1958 Hepatitis B Screening 1965 Well Visit 65+ 2012 Zoster Vaccine (2 of 2) 08/17/2019 06/22/2019 Influenza Vaccine (#1) 2025 9, 05/10/2018, 05/19/2017, Additional history exists Pneumococcal vaccine 65+ Completed 05/25/2017, 05/07 Procedures Procedure Name Priority Date/Time Associated Diagnosis Comments ECG 12-LEAD Routine 03/24/2025 11:25 AM CDT 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 from Last 3 Months Results * ECG 12 lead (03/24/2025 11:25 AM CDT) Namrata Elizabeth Vesna WATER AEROBICS INSTRUCTOR ECG ORDERABLES Final Res ult from Last 3 Months Insurance MEDICARE [facility] SENIOR SUPPLEMENT MEDICARE [facility] SENIOR SUPPLEMENT Care Teams Rivet Spinner Relationship Specialty Start Date End Date Scott Escobar MD PCP - General 10/03/16
--- OUTSIDE RECORDS SUMMARY | 2025-03-30 16:38 | XMS_ITS | Patient Health Record ---
Author Organization [facility] Address [address] [place], [place] [id number] Care Team Providers Care Shorer Name Role Phone TIRSO AUSTIN Unavailable [phone] Scott Escobar Unavailable Unavailable Reason For Referral No Information Plan Of Treatment No Information Insurance Providers Payer Name Payer Address Payer Phone Subscriber Number Group Number Insured Name Patient Relationship to Insured Coverage Start Date Coverage End Date Medicare Part B [place] [address] [place] [address] [id number] EVELIO MERINO Self - patient is the insured [facility] Insurance [address] [address] [place] [address] [id number] EVELIO MERINO Self - patient is the insured [facility] [address] [place], [place] [id number] EVELIO MERINO Self - patient is the insured
== END 2025-03-30 13:48 | disposition home or self-care (01) ==
PROVIDERS: PCP Internal Medicine; Visit Provider Neurological Surgery
DX: M54.9 Dorsalgia, unspecified (principal); Z01.818 Encounter for other preprocedural examination
CPT/HCPCS: 36415; 81001; 85027; 85610; 85730

== ENCOUNTER 2025-04-11 00:24 | Day surgery (SDC) | payer MEDICARE, SELFPAY ==
--- NOTE | 2025-03-30 13:54 | PC.NURSE ---
[facility] has started construction of its new state of the art ER which will open Spring 2026. With this, we anticipate parking may be a challenge for some our surgical patients and families. Parking spaces are limited but are available for all Surgical, obstetrics, and ER patients sharing this lot. If you arrive and find you are having a hard time finding a parking space, please note that we understand the challenges, please drive around the hospital and park near Hospital Entrance 1. When you enter this entrance, you can ask a volunteer to direct or take you back to the surgical waiting area to check in. We appreciate everyone?s understanding of these expected challenges while we build for your future. Report to the Outpatient Waiting Room, entrance under the green pavilion located off [address], at time _8 am on date _04/11/25 . Planned Procedure Time: _10 am .? Time changes happen often and if your time is changed the preop area will call you the afternoon before. - You and your visitor will be asked to self-screen and do not enter if you have any COVID symptoms. Please call surgeon if you need to reschedule. - A mask is optional within the hospital at this time. Patients may have clear liquids (water, carbonated beverages, clear teas, apple juice) until 3 hours prior to surgery( 7 am) with a maximum of 20 ounces. - No food from midnight until time of surgery and no smoking, or chewing tobacco (or any form of nicotine). No chewing gum, candy or mints. - Take only the following medications with a SIP of water on the morning of surgery: _INHALER DO NOT STOP ANY OF YOUR OTHER PRESCRIPTION MEDICATIONS PRIOR TO SURGERY EXCEPT THE FOLLOWING Hold all vitamins and supplements for 3 days per anesthesiologist.LAST DOSE 04/07/25 Medications to discontinue per physician ASPIRIN HOLD 5-7 DAYS PRE ANTONIO INDIRA Date to take last dose 04/05/25 Please no make-up, nail malaysian, hairspray, perfume, deodorant, or body powder the day of surgery.? No jewelry (including any body piercings) or valuables the day of surgery, leave them at home.? Please take a shower or bath the night before, or the morning of, surgery with an antibacterial soap.? Wear comfortable, loose fitting clothing.? Children are encouraged to wear pajamas. - Jewelry must be removed prior to entering the operating room.? Rings and piercings that are not removed may be cut off. - The hospital will not accept responsibility for valuables.? - Please leave all valuables, including medications, at home the day of surgery. If you are going home after surgery, a licensed cryogenic transport driver must drive you home.? - NO public transportation without another adult if you receive anesthesia. - We recommend that an adult stay with you for 24 hours following discharge. - We also recommend that you do not drive, make important decision, drink alcoholic beverages, or take any drugs that were not prescribed by your health care provider for at least 24 hours after your discharge time. For Pediatric surgeries, we recommend two adults accompany the child home. Follow any additional instructions given to you from your surgeon. verbal and written instructions given to ___PATIENT and asked if any additional questions and then verbalized understanding. Patient advised to call surgeon office or pre surgery nurse liaison [phone] if any additional questions.
[2025-03-30 13:58] VITALS: BMI 42.1
[2025-03-30 14:44] VITALS: BP 138/82; PULSE 68; RESP 18; TEMP 36.7; O2SAT 97
[2025-04-11 08:15] VITALS: PULSE 68; RESP 16; TEMP 36.6; O2SAT 95
[2025-04-11] MEDS: LACTATED RINGERS 1,000 ML 30 ML IV CONT (08:15)
[2025-04-11 08:40] VITALS: BMI 41.1
[2025-04-11 08:45] LABS: Anion Gap 6 mmol/L (4-12); Blood Urea Nitrogen 16 mg/dL (7-17); Calcium 9.4 mg/dL (8.4-10.2); Carbon Dioxide 27 mmol/L (22-30); Chloride 105 mmol/L (98-107); Estimated CRCL calculation 79 ml/min; Estimated Glomerular Filt Rate > 60; Glucose 124 mg/dL (65-110); Potassium 4.3 mmol/L (3.4-5.0); Sodium 138 mmol/L (137-145)
--- NOTE | 2025-04-11 09:20 | SUR.PREOP ---
0920- Patient surgery canceled due to delay in OR. Patient verbalized understanding of discharge instructions and made aware to contact Dr. Mars's office to reschedule today's procedure.
== END 2025-04-11 09:20 | disposition home or self-care (01) ==
PROVIDERS: PCP Internal Medicine; Visit Provider Neurological Surgery
DX: M54.9 Dorsalgia, unspecified (principal); G89.29 Other chronic pain; Z53.8 Procedure and treatment not carried out for other reasons
CPT/HCPCS: 36415; 80048; 99213; G0463; J2004; J7120

== ENCOUNTER 2025-05-02 00:32 | Day surgery (SDC) | payer MEDICARE, SELFPAY ==
--- NOTE | 2025-04-21 11:21 | PC.NURSE ---
[facility] has started construction of its new state of the art ER which will open Spring 2026. With this, we anticipate parking may be a challenge for some our surgical patients and families. Parking spaces are limited but are available for all Surgical, obstetrics, and ER patients sharing this lot. If you arrive and find you are having a hard time finding a parking space, please note that we understand the challenges, please drive around the hospital and park near Hospital Entrance 1. When you enter this entrance, you can ask a volunteer to direct or take you back to the surgical waiting area to check in. We appreciate everyone?s understanding of these expected challenges while we build for your future. Report to the Outpatient Waiting Room, entrance under the green pavilion located off [address], at time _11:30 am on date ___05/02/25____. Planned Procedure Time: __1:30 pm .? Time changes happen often and if your time is changed the preop area will call you the afternoon before. - You and your visitor will be asked to self-screen and do not enter if you have any COVID symptoms. Please call surgeon if you need to reschedule. - A mask is optional within the hospital at this time. Patients may have clear liquids (water, carbonated beverages, clear teas, apple juice) until 3 hours prior to surgery ( 10:30 am) with a maximum of 20 ounces. - No food from midnight until time of surgery and no smoking, or chewing tobacco (or any form of nicotine). No chewing gum, candy or mints. Take only the following medications with a SIP of water on the morning of surgery: _INHALER DO NOT STOP ANY OF YOUR OTHER PRESCRIPTION MEDICATIONS PRIOR TO SURGERY EXCEPT THE FOLLOWING Hold all vitamins and supplements for 3 days per anesthesiologist.LAST DOSE 04/28/25 Medications to discontinue per physician HOLD ASPIRIN 5-7 DAYS PRE OP PER ANTONIO JACOBSON _NP Date to take last dose 04/24/25 Please no make-up, nail eritrean, hairspray, perfume, deodorant, or body powder the day of surgery.? No jewelry (including any body piercings) or valuables the day of surgery, leave them at home.? Please take a shower or bath the night before, or the morning of, surgery with an antibacterial soap.? Wear comfortable, loose fitting clothing.? Children are encouraged to wear pajamas. - Jewelry must be removed prior to entering the operating room.? Rings and piercings that are not removed may be cut off. - The hospital will not accept responsibility for valuables.? - Please leave all valuables, including medications, at home the day of surgery. If you are going home after surgery, a licensed port cdl a driver must drive you home.? - NO public transportation without another adult if you receive anesthesia. - We recommend that an adult stay with you for 24 hours following discharge. - We also recommend that you do not drive, make important decision, drink alcoholic beverages, or take any drugs that were not prescribed by your health care provider for at least 24 hours after your discharge time. For Pediatric surgeries, we recommend two adults accompany the child home. Follow any additional instructions given to you from your surgeon. Telephone instructions given to ___PATIENT and asked if any additional questions and then verbalized understanding. Patient advised to call surgeon office or pre surgery nurse liaison [phone] if any additional questions.
[2025-04-21 11:28] VITALS: BMI 42.1
[2025-05-02] VITALS (8 sets, daily range): BP systolic 121–147; BP diastolic 59–78; PULSE 60–70; RESP 14–20; TEMP 36.5–36.7; O2SAT 95–100
--- NOTE | ~2025-05-02 | XR_ITS ---
XR fluoroscopy no charge Indication:placement of dorsal column stimulator lead TECHNIQUE: Fluoroscopy used during placement of dorsal column stimulator lead performed by [Pelon Juarez MD] on 05/02/2025. 9 seconds of fluoroscopy time with 3 fluoroscopic images captured. FINDINGS: Correlate with procedure note. IMPRESSION: Fluoroscopy used during placement of dorsal column stimulator lead. Reviewed, dictated and finalized at location C.
--- OUTSIDE RECORDS SUMMARY | 2025-05-02 00:35 | XMS_ITS | Patient Health Record ---
Author Organization [facility] Address [address] [place], [place] [id number] Care Team Providers Care Corporate Compliance Director Name Role Phone TIRSO AUSTIN Unavailable [phone] Luz Scott Unavailable Unavailable Reason For Referral No Information Social History Social History Additional Details Category Social Info Options Details Migrated Social History Migrated Social History History of tobacco use : , Smoking Status : Never smoked Plan Of Treatment No Information Insurance Providers Payer Name Payer Address Payer Phone Subscriber Number Group Number Insured Name Patient Relationship to Insured Coverage Start Date Coverage End Date Medicare Part B [place] [address] [place] [address] [id number] EVELIO MERINO Self - patient is the insured [facility] Insurance [address] [address] [place] [address] [id number] EVELIO MERINO Self - patient is the insured [facility] [address] [place], [place] [phone] [id number] EVELIO MERINO Self - patient is the insured
--- OUTSIDE RECORDS SUMMARY | 2025-05-02 00:35 | XMS_ITS | Clinical Summary ---
Author Organization [facility] Address [address] [place] [address] Care Team Providers Care Inside Sales Assistant Name Role Phone None, Provider MD Primary Care Provider Unavaila ble Social History Tobacco Use Types Packs/Day Years [...] 1-dose 75+ series) 2022 COVID-19 Vaccine ( season) 2025 05/14/2023, 04/17/2022, 04/09/2021, Additional history exists Influenza Adult (#1) 2025 05/23/2022, 06/03/2021, 05/17/2020, Additional history exists Pneumococcal Vaccine: 50+ Years Completed 05/25/2017, 06/03/2016 Hepatitis A Vaccines Aged Out No long er eligible based on patient's age to complete this topic Meningococcal B Vaccine Aged Out No l onger eligible based on patient's age to complete this topic Meningococcal Vaccine Aged Out No ada shukri eligible based on patient's age to complete this topic RSV Immunizations Under 20 Months Aged Out No longer eligible based on patient's age to complete this topic Insurance MEDICARE [employer] Care Teams Inside Sales Assistant Relationship Specialty Start Date End Date None, Provider, PCP - General 02/13/22
--- OUTSIDE RECORDS SUMMARY | 2025-05-02 00:35 | XMS_ITS | Clinical Summary ---
Author Organization [facility] [address] [facility] [address] Address [address] [place] [address] Care Team Providers Care Propellant Charge Zone Assembler Name Role Phone Scott Escobar MD Primary Care Provider [phone] Allergies No known active allergies Medications calcium [...] (hypertension), benign Coronary artery disease invo lving manzanita coronary artery of manzanita heart without angina pectoris 08/20/2015 Overview (10/10/2016): Coronary artery disease involving manzanita coronary artery of manzanita heart without angina pectoris Paroxysmal supraventricular tachycardia 01/19/20 14 Overview (10/10/2016): PSVT (paroxysmal supraventricular tachycardia) Resolved Problems Problem Noted Date Diagnosed Date Resolved Date Dyslipidemia 08/20/2015 12/18/2021 Overview (10/10/2016): Dyslipidemia Encounters Date Type Department Care Team Description 03/24/2025 11:30 AM CDT Office Visit [facility] Cardiology [address] [place] [address] Namrata Malagon NP Gastroesophageal reflux disease, unspecified whether esophagitis present; Coronary artery disease involving manzanita coronary artery of manzanita heart without angina pectoris; Atrial bigeminy; Preoperative [...] on file 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
--- OUTSIDE RECORDS SUMMARY | 2025-05-02 00:35 | XMS_ITS | Clinical Summary ---
Author Organization [facility] Address [address] [place] [address] Care Team Providers Care Transliterator Name Role Phone Scott Escobar MD Primary Care Provider [phone] Source Comments [facility],non-owned Affiliates and Associated Physician Practices is amultiple site organization consisting of ambulatory clinics and hospital sitesin [place], [place], [place] and [place]. This disclosure is being madepursuant to the Care Everywhere program and may not contain all information available regarding this patient. Last updated 18.[facility] Allergies No known active allergies Medications * [...] fluticasone propionate (Flonase) 50 MCG/ACT nasal spray [place] 2 (two) sprays into each nostril once daily as needed Active acetaminophen (Tylenol) 500 MG tablet Take 1 (one) tablet by mouth every 4 hours as needed for Fever or Pain Maximum allowable Acetaminophen amount = 4 Grams (4000 mg) / 24 hours. Active Albuterol-[place] sonide (Airsupra) 90-80 MCG/ACT AERO Inhale Active [...] (hypertension), benign Coronary artery disease invo lving chitina coronary artery of chitina heart without angina pectoris 08/20/2015 12/03/2022 Overview (12/03/2022): Coronary artery disease involving chitina coronary artery of chitina heart without angina pectoris SVITLANA on CPAP 08/20/2015 12/03/2022 Overview (12/03/2022): SVITLANA on CPAP Paroxysmal supraventricular tachycardia 01/19/20 14 12/03/2022 Overview (12/03/2022): PSVT (paroxysmal supraventricular tachycardia) Morbid (severe) obesity due to excess calories 1 07/11/2011 Lichen sclerosus et atrophicus of the vulva 12/201112/03/2022 Encounters Date Type Department Care Team Description 02/10/2025 Telephone [facility] [address] [place] [phone] Lala Rosenthal MD Question 02/09/2025 11:45 AM CDT Office Visit [facility] [address] [place] [address] Lala Rosenthal MD Mixed stress and urge [...] on file Legal Sex Female 5:55 PM ELECTRONICS TECH Gender Identity Not on file Sexual Orientation [...] st Contact Info) Description 05/16/2025 10:30 AM ELECTRONICS TECH Office Visit [facility] [address] [place] [phone] Georgia Morris MD [address] [place] [address] 02/22/2026 11:45 AM CDT Office Visit [facility] [address] [place] [address] Lala Rosenthal MD [address] [place] [address] Health Maintenance Due Date Last [...] MEDICARE MEDICARE SUPPLEMENT PAYOR GENERIC Care Teams Transliterator Relationship Specialty Start Date End Date Scott Escobar MD [address] [phone] [facility] - General 04/20/12
[2025-05-02] MEDS: LACTATED RINGERS 1,000 ML 30 ML IV CONT ×2 (11:30→17:12)
--- NOTE | 2025-05-02 15:14 | WPDANESEPPF ---
Anes - Initial Pre Proc Eval Procedure: Operation Date: 05/02/25 13:30 Proposed Procedures p Placement Dorsal Column Stimulator Lead and Generator - Pelon Juarez MD Date/Time: 05/02/25 15:14 Surgeon: Pelon Juarez MD Pre Op Diagnosis: chronic back and leg pain Patient Data Age: 79 Gender: F Height: 1.68 m Weight: 107.4 kg Last Vital Signs Temp 97.7 F 05/02/25 12:07 Pulse 65 05/02/25 12:07 Resp 16 05/02/25 12:07 BP 147/68 H 05/02/25 12:07 Pulse Ox 95 05/02/25 12:07 O2 Del Method Room Air 05/02/25 12:07 Allergies Allergy/AdvReac Type Severity Reaction Status Date / Time No Known Allergies Allergy Verified 04/21/25 11:22 Home Medications ?Medication ?Instructions ?Recorded ?Confirmed ?Type atorvastatin 40 mg tablet 40 mg PO DAILY 07/14/19 04/21/25 History calcium 600 mg (as 1 cap PO DAILY 07/14/19 04/21/25 History carbonate)-vitamin D3 5 mcg (200 unit) capsule (Calcium 600 + D(3)) diltiazem HCl 180 mg 180 mg PO DAILY 07/14/19 04/21/25 History capsule,extended release 24 hr ramipril 10 mg capsule 10 mg PO DAILY 02/01/20 04/21/25 History aspirin 81 mg tablet,delayed 81 mg PO DAILY 03/04/23 05/02/25 History release (Adult Low Dose Aspirin) fexofenadine 180 mg tablet 180 mg PO DAILY 07/08/24 04/21/25 History albuterol 90 mcg-budesonide 80 2 inh inhalation DAILY PRN 12/06/24 04/21/25 History mcg/actuation HFA aerosol inhaler shortness of breath (Airsupra) duloxetine 60 mg capsule,delayed 60 mg PO QHS 12/06/24 04/21/25 History release famotidine 20 mg tablet (Acid 20 mg PO HS 03/30/25 04/21/25 History Controller) omeprazole magnesium 20 mg 20 mg PO DAILY 03/30/25 04/21/25 History tablet,delayed release (Prilosec OTC) solifenacin 10 mg tablet 10 mg PO HS 03/30/25 04/21/25 History Patient hx anesthesia problems: none Family hx anesthesia problems: none Results Review: All pre-operative results and documents have been reviewed as part of the pre-operative evaluation. [facility] Past Medical History Medical History Osteoporosis History of postmenopausal bleeding Vulvar inflammation Asthma Elevated lipids Hypertension H/O vaginal delivery Surgical History Surgical History History of elbow surgery History of myomectomy History of tubal ligation History of dilation and curettage Family History Family History Father Family history of chronic obstructive pulmonary disease Mother Family history of diabetes mellitus in first degree relative Family history of heart disease in male family member before age 55 Diabetes mellitus Other Family history of malignant neoplasm Family history of malignant neoplasm of breast Social History Social History (Updated 03/14/25 @ 10:29 by Ml Loredo CMA) Smoking packs per day: 1.5 Smoking cigarettes per day: 30.0 Years smoked: 14 Smoking pack-years: 21.00 Smoking status: Former smoker Tobacco type: cigarettes Smoking end date: 07/06/75 Alcohol intake: current Alcohol use details: 1 beer a month Substance use: never Substance use type: does not use Do You Feel Safe in your Home?: Yes Lack of Transportation: No Lack of Food: Never True Current Housing: I Have Housing Concerned About Future Housing: No Difficulty Paying Gas/Electric Bills: No Difficulty Paying for Meds: No Currently Unemployed: No Education: High School Diploma/GED Difficulty w/ Childcare or Family Care: No Living arrangements: with family Occupation/Education: retired Gender identity (if verbalized by the patient): Female Sexual Orientation (if Verbalized by the Patient): Straight or Heterosexual Spiritual care concerns: No Anes - Eval Final PreProcedure Day of Procedure 05/02/25 15:14 Patient weight: obese Lungs: normal air movement Airway: Mallampati scale and special considerations (Upper dentures. ) Neurological: alert and oriented Last oral intake: >/= 8 hours ASA classification: III Emergent: no Anesthetic plan: proceed Anesthesia type and monitoring: general GIVS and standard monitoring Results Review: All pre-operative results and documents have been reviewed as part of the pre-operative evaluation. HTN, hyperlipidemia, SVITLANA on CPAP. Informed Consent: The patient's anesthetic plan and its attendant risks and benefits were discussed with the patient/family/POA. Questions were solicited and answers provided to the satisfaction of the patient/family/POA.
--- NOTE | 2025-05-02 15:15 | PM.IMHP ---
H&P: HPI History of Present Illness Date/Time: 05/02/25 15:15 Chief Complaint: Back and leg pain Narrative: Tasha is here today for placement of a dorsal column stimulator lead and generator. She is a 79-year-old female with a long-time history of pain in her back. This radiates at times into her lower extremities down to below the knee but not all the way to her ankle. Only does this intermittently. The pain in the low back is nearly constant but it is significantly worse if she is standing and walking and seems to be helped by sitting down, usually but not always. She uses a shopping cart to help her walk further. She says she has generalized weakness but does not have specific muscle group weakness. Over the years she is participated in physical therapy and also for about 3 years been treated by pain management with injections in various locations including the epidural space at multiple levels and medial branch blocks followed by radiofrequency ablation. The ablation only helped her for a very short time. Other injections have been more helpful but not permanent. She does not remember a specific inciting event for her problem. The pain can be severe and limiting for her daily. Again, it is better at rest that is sitting or lying down. She is not having bowel or bladder difficulty or other constitutional problems. she has not changed appreciably since we last saw her. We had initially discussed several surgical options but landed on performing a dorsal column stimulator trial. She states that this has been 75-80% effective in eliminating the discomfort that she has that limits her. She is interested in having it permanently implanted. Review of Systems Review of Systems: All systems reviewed & are unremarkable except as noted in HPI and below Denies chills, Denies fever, Denies weight gain and Denies weight loss Eyes Denies change in vision and Denies diplopia ENT Denies disequilibrium Card Denies chest pain and Denies dyspnea Resp Denies cough and Denies dyspnea GI Denies abdominal pain, Denies change in bowel habits, Denies fecal incontinence and Denies vomiting Denies hematuria, Denies oliguria, Denies difficulty urinating, Denies dysuria, Denies urinary frequency, Denies urinary hesitancy, Denies urinary incontinence and Denies urinary urgency Musc Reports as per HPI Skin/ Breast Reports system reviewed and no additional complaints, except as documented Neuro Reports as per HPI Psych Reports no additional complaints, Denies depression and Denies hopelessness Endo Reports no additional complaints and Denies polyuria Nacho/ Lymph Reports no additional complaints Aller/ Immun Reports no additional complaints PMFSH Past Medical History Medical History Osteoporosis History of postmenopausal bleeding Vulvar inflammation Asthma Elevated lipids Hypertension H/O vaginal delivery Surgical History Surgical History History of elbow surgery History of myomectomy History of tubal ligation History of dilation and curettage Family History Family History Father Family history of chronic obstructive pulmonary disease Mother Family history of diabetes mellitus in first degree relative Family history of heart disease in male family member before age 55 Diabetes mellitus Other Family history of malignant neoplasm Family history of malignant neoplasm of breast Social History Social History (Updated 03/14/25 @ 10:29 by Ml Loredo CMA) Smoking packs per day: 1.5 Smoking cigarettes per day: 30.0 Years smoked: 14 Smoking pack-years: 21.00 Smoking status: Former smoker Tobacco type: cigarettes Smoking end date: 07/06/75 Alcohol intake: current Alcohol use details: 1 beer a month Substance use: never Substance use type: does not use Do You Feel Safe in your Home?: Yes Lack of Transportation: No Lack of Food: Never True Current Housing: I Have Housing Concerned About Future Housing: No Difficulty Paying Gas/Electric Bills: No Difficulty Paying for Meds: No Currently Unemployed: No Education: High School Diploma/GED Difficulty w/ Childcare or Family Care: No Living arrangements: with family Occupation/Education: retired Gender identity (if verbalized by the patient): Female Sexual Orientation (if Verbalized by the Patient): Straight or Heterosexual Spiritual care concerns: No Meds Home Medications and Allergies Home Medications ?Medication ?Instructions ?Recorded ?Confirmed ?Type atorvastatin 40 mg tablet 40 mg PO DAILY 07/14/19 04/21/25 History calcium 600 mg (as 1 cap PO DAILY 07/14/19 04/21/25 History carbonate)-vitamin D3 5 mcg (200 unit) capsule (Calcium 600 + D(3)) diltiazem HCl 180 mg 180 mg PO DAILY 07/14/19 04/21/25 History capsule,extended release 24 hr ramipril 10 mg capsule 10 mg PO DAILY 02/01/20 04/21/25 History aspirin 81 mg tablet,delayed 81 mg PO DAILY 03/04/23 05/02/25 History release (Adult Low Dose Aspirin) fexofenadine 180 mg tablet 180 mg PO DAILY 07/08/24 04/21/25 History albuterol 90 mcg-budesonide 80 2 inh inhalation DAILY PRN 12/06/24 04/21/25 History mcg/actuation HFA aerosol inhaler shortness of breath (Airsupra) duloxetine 60 mg capsule,delayed 60 mg PO QHS 12/06/24 04/21/25 History release famotidine 20 mg tablet (Acid 20 mg PO HS 03/30/25 04/21/25 History Controller) omeprazole magnesium 20 mg 20 mg PO DAILY 03/30/25 04/21/25 History tablet,delayed release (Prilosec OTC) solifenacin 10 mg tablet 10 mg PO HS 03/30/25 04/21/25 History Allergies Allergy/AdvReac Type Severity Reaction Status Date / Time No Known Allergies Allergy Verified 04/21/25 11:22 Vital Signs Vital Signs - 24 hr 05/02/25 12:07 Temperature 97.7 F Pulse Rate 65 Respiratory Rate 16 Blood Pressure 147/68 H Pulse Oximetry 95 Oxygen Delivery Room Air Exam Narrative: General: cooperative, no acute distress, well developed, alert and awake Orientation/Consciousness: oriented to person, oriented to place and oriented to time Constitutional Limitations: no limitations Other: The patient is a normally developed, normal appearing female sitting on the examination table in no acute distress. She is awake, alert, and oriented x3 with good fund of knowledge, recall of events, and fluent speech. [facility] Head: normocephalic and atraumatic Ears: external ears normal Face/Nose/Sinus: Normal external nose present Eyes Eyelids: eyelids normal Pupils: Yes Pupils normal by confrontation EOM: EOMs intact bilaterally Neck General: Yes no meningeal signs, Yes supple and Yes no JVD Resp Effort/Inspection: normal respiratory effort and able to speak in complete sentences Cardio Rate: Yes regular rate GI Inspection: No abdominal distension Musc Other: Examination of the back reveals significant tenderness over the SI joints bilaterally. Range of motion of the back is somewhat limited with pain in extension. Straight leg raise is negative bilaterally. Leland?s test is negative bilaterally. Skin General: normal color Neuro General: Yes oriented to person, Yes oriented to place, Yes oriented to time, Yes normal cognition and Yes no meningeal signs Cranial Nerves: Yes CN's II-XII intact bilaterally Other: Motor: Strength is normal, 5/5, throughout all muscle groups of the bilateral lower extremities to direct confrontation. Sensory: Sensation is intact to light touch throughout the lower extremities bilaterally. Reflexes: Deep tendon reflexes are difficult to elicit the knees or ankles bilaterally. There is no clonus. Gait: Gait, station, and transfers are independent and steady for short periods of time and over short distances. She favors the left lower extremity. Psych Appearance: grossly normal Mental status: Yes mental status grossly normal Mood: congruent mood Affect: Yes normal affect Speech/Movement: Normal speech and movement present Attitude: Yes cooperative Thought Content: Normal thought content present Assessment and Plan Assessment and plan (1) Chronic back pain: Code(s): M54.9 - Dorsalgia, unspecified; G89.29 - Other chronic pain Status: Acute Assessment and Plan: Tasha is a 79-year-old female with chronic back and leg pain that responded with dorsal column stimulator trial and she desires to have it permanently implanted. I described to her that operation, its risks, potential benefits, the operative and postoperative course in detail answered all her questions personally. We discussed risks including but not limited to permanent neurologic deficit secondary to injury of the spinal cord or nerve roots, need for reoperation secondary to infection, bleeding, CSF leak, adjacent level disease, recurrent residual pathology or instability, malposition migration of the hardware, failure of the procedure to relieve her pain or symptoms, persistent pain, medical complications related anesthesia or surgery, etc.. We specifically discussed the potential complications of migration of the device requiring revision, infection of the device the requiring its removal and potentially later reimplantation and bleeding into the epidural space causing severe neurologic deficit or requiring reoperation. She indicates understanding and elects to proceed with that operation.
--- NOTE | 2025-05-02 15:21 | WPDHPUPDATE1 ---
History and Physical Update Update Date/Time: 05/02/25 15:21 History and Physical has been reviewed, including an updated exam of the patient. There are NO changes in the patient's condition. Risks, benefits, and alternatives have been discussed and questions answered. Patient agrees to proceed with procedure.
[2025-05-02] MEDS: ceFAZolin 2 GM in SODIUM CHLORIDE 0.9% IV 50 ML 100 ML IVPB (15:37)
[2025-05-02] MEDS: LIDO 1%/EPINEPHRINE 1:100,000 20 ML VIAL INFILTRATE (16:20)
[2025-05-02] MEDS: VANCOMYCIN HCL 1,000 MG VIAL 1000 MG TOPICAL (16:20)
[2025-05-02] MEDS: oxyCODONE HCL (*CRX) 5 MG TAB IR PO (18:10)
--- NOTE | 2025-05-02 22:17 | W.PM.PROC2 ---
Procedure Note - Detailed Date of Procedure 05/02/25 Pre-op Diagnosis chronic back and leg pain Post-op Diagnosis Same Procedure Performed placement of dorsal column stimulator lead and generator Surgeon Pelon Juarez MD Anesthesia General Description of Procedure the patient was brought to the operating room in the supine position, was sedated, intubated and placed under general anesthesia in routine fashion. She was then turned into the prone position on an open Chan table. The operation her back was examined, marked for incision, prepped and draped in routine sterile fashion. Incision was marked over the T10 pedicles in the midline as determined with fluoroscopy and transversely in the left flank. These areas were injected with 0.5% lidocaine with 1 200,000 epinephrine. Intravenous antibiotics given prior to incision. Incision was made with a 10 blade scalpel down to the lumbodorsal fascia. A subperiosteal dissection of the muscle soft tissue away from spinous process and lamina at the thoracic incision was performed with a subperiosteal elevator and Bovie cautery. A verifying x-rays obtained to verify level of operation. At the left flank a pocket was created 1 cm deep in the tissue using curved Vernon scissors and toothed forceps. Bleeding was stopped with bipolar cautery. Laminectomies were performed at T9-10 and T8-9 using a Leksell rongeur, Kerrison punches and curved curettes until a short wide area of the dura was uncovered. The dorsal epidural space was cannulated with a malleable retractor. The lead was then placed into the dorsal epidural space until it was confirmed be behind the T7 and T8 vertebral bodies in the midline. An anchor was attached to 1 of the wires which was attached to the superior spinous process using a 3-0 Prolene suture. Tension relief loops were placed in both of the wires which were then buried the flank incision. Here they were inserted into the generator slots and secured there using the small screwdriver for that purpose. Impedance testing was carried out to confirm good connectivity which was confirmed. The wounds were copiously irrigated with bacitracin irrigation all bleeding stopped with bipolar and Bovie cautery and Gelfoam thrombin powder. Vancomycin impregnated pellets were placed into both wounds at the generator was placed in the pocket with excess wire coiled up underneath it. The wounds were then closed in layered fashion with 2-0 Vicryl interrupted sutures in the thoracic fascia and Gem's layer. Both incisions were closed with 3-0 Vicryl buried interrupted sutures in the dermis and a running 4-0 Monocryl subcuticular stitch in the skin and were dressed with Dermabond. The patient was allowed to wake up in the operating room and was taken to the recovery room in stable condition. There were no immediate complications of this operation. All counts were reported correct at the end of the case. Blood loss was 25 cc. The patient was neurologically at her baseline postoperatively. Estimated Blood Loss 25 Complications None Condition Stable [facility] Billing Surgery - Charge Forward: Surgery Billing
== END 2025-05-02 18:58 | disposition home or self-care (01) ==
PROVIDERS: PCP Internal Medicine; Visit Provider Neurological Surgery
PROC: (CPT 63685; principal; 2025-05-02 13:30)
DX: M54.9 Dorsalgia, unspecified (principal); M79.606 Pain in leg, unspecified; G89.29 Other chronic pain
CPT/HCPCS: 63685; 63655; 99199; J0690; A9270; C1713; C1778; C1820; J1100; J2003; J2004; J2250; J2405; J2704; J3010; J3373; J7120